=== PATIENT | female | born 2000 | race Caucasian/White ===

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

== ENCOUNTER 2021-06-10 23:02 | Emergency (ER) | payer OTHER ==
--- NOTE | 2021-06-10 23:32 | ED Physician Documentation ---
PD HPI URI - Stated complaint Stated Complaint: FEVER/NAUSEA/CHILLS - Chief complaint Chief Complaint: Fever - History obtained from History obtained from: Patient - History of Present Illness Timing - onset: Today Timing duration: Days (1) Timing details: Abrupt onset, Still present Associated symptoms: Fever, Sore throat, Swollen nodes. No: Ear pain, Nasal congestion, Dry cough, Dyspnea, NVD Contributing factors: Unimmunized. No: Sick contact, Travel, Immunocompromised Worsened by: Other Similar symptoms before: Diagnosis (has had strep tonsillitis few years past.) Recently seen: Not recently seen Review of Systems Constitutional: reports: Fever, Chills, Myalgias Nose: denies: Rhinorrhea / runny nose, Congestion Throat: reports: Sore throat, Swollen tonsils Respiratory: denies: Cough GI: denies: Abdominal Pain, Nausea, Vomiting Skin: denies: Rash PD PAST MEDICAL HISTORY - Past Medical History Cardiovascular: None Respiratory: None Neuro: None Endocrine/Autoimmune: None - Past Surgical History Past Surgical History: No - Present Medications Home Medications: Ambulatory Orders Medication Instructions Recorded Confirmed Ibuprofen [Motrin] 600 mg PO TID PRN #20 tab 06/11/21 Ondansetron Odt [Zofran] 4 mg TL Q6H PRN #10 tablet 06/11/21 cephALEXin [Keflex] 500 mg PO TID 6 Days #18 cap 06/11/21 - Allergies Allergies/Adverse Reactions: Allergies Allergy/AdvReac Type Severity Reaction Status Date / Time No Known Drug Allergies Allergy Verified 06/10/21 23:20 - Social History Does the pt smoke?: No Smoking Status: Never smoker Does the pt drink ETOH?: No Does the pt have substance abuse?: No - Immunizations Immunizations are current?: Yes PD ED PE NORMAL - Vitals Vital signs reviewed: Yes - General General: Alert and oriented X 3, Well developed/nourished - HEENT HEENT: No: Pharynx benign (tonsils swollen bilaterally with exudate and mild lateral peritonsillar edema without bulging. Anterior adenopathy bilaterally. ) - Neck Neck: Supple, no meningeal sign - Cardiac Cardiac: No: RRR (regular but tachycardic) - Respiratory Respiratory: Clear bilaterally - Abdomen Abdomen: Soft, Non tender, No organomegaly - Derm Derm: Normal color, Warm and dry, No rash Results - Vitals Vitals: Vital Signs - 24 hr 06/10/21 06/11/21 23:18 00:16 Temperature 39.1 C H 38.8 C H Heart Rate 115 H 120 H Respiratory 16 17 Rate Blood Pressure 105/59 L 104/59 L O2 Saturation 100 95 Oxygen O2 Source Room air - Labs Labs: Laboratory Tests 06/10/21 23:20 Group A Strep Rapid Negative PD MEDICAL DECISION MAKING - ED course Complexity details: reviewed results, considered differential (tonsils/exam is consistent with likely strep with 4/4 Centor. Rapid strep negative, but culture pending. ), d/w patient Departure - Departure Disposition: Home, Self Care Clinical Impression: Acute tonsillitis Qualifiers: Pharyngitis/tonsillitis etiology: unspecified etiology Qualified Code(s): J03.90 - Acute tonsillitis, unspecified Condition: Stable Record reviewed to determine appropriate education?: Yes Instructions: ED Strep Pharyngitis Poss Follow-Up: MADDY Hernandez [Provider Group] Prescriptions: cephALEXin [Keflex] 500 mg PO TID 6 Days #18 cap Ibuprofen [Motrin] 600 mg PO TID PRN #20 tab PRN Reason: Pain Ondansetron Odt [Zofran] 4 mg TL Q6H PRN #10 tablet PRN Reason: Nausea / Vomiting Comments: Your rapid strep test is negative which is particular for group A strep. Your symptoms and exam look likely to be strep tonsillitis. The culture we are doing will result in a couple of days and will test for other types of strep. We also did a Covid test. I would treat this as possible strep with cephalexin 3 times a day for the next 6 days. Other medications of ibuprofen 3 times a day for inflammation and pain and fever. Add Tylenol if needed. Add ondansetron if needed for nausea. Off work for the next couple of days pending test results and improving symptoms. Is possible that this is a viral type infection. Would get the Covid results in a day or 2 as well to test specifically for that. [facility] Forms: Activity restrictions Discharge Date/Time: 06/11/21 00:16
[2021-06-10 23:37] LABS: RAPID STREP SCREEN Negative (Negative)
[2021-06-10] MEDS ORDERED: ONDANSETRON 4 MG/2 ML VIAL IVP STA (23:40)
[2021-06-10] MEDS ORDERED: IBUPROFEN 600 MG TABLET PO STA (23:40)
[2021-06-10] MEDS ORDERED: ACETAMINOPHEN 325 MG TABLET PO STA (23:40)
[2021-06-10] MEDS ORDERED: cephALEXin 250 MG CAPSULE PO STA (23:41)
[2021-06-10] MEDS ORDERED: diphenhydrAMINE ELIXIR 25 MG/10 ML UDC PO STA (23:41)
[2021-06-10] MEDS ORDERED: ONDANSETRON ODT 4 MG TABLET TL STA (23:43)
[2021-06-11 00:18] VITALS: BP 104/59
== END 2021-06-11 00:16 | disposition home or self-care (01) ==
LOC: ED 23:02
DX: J03.90 Acute tonsillitis, unspecified (principal); Z20.822 Contact with and (suspected) exposure to COVID-19
CPT/HCPCS: 87070; 87077; 87430; 87635; 99283; A9270; Q0162

== ENCOUNTER 2022-01-10 14:52 | Emergency (ER) | payer OTHER ==
[2022-01-10 14:58] VITALS: BP 117/72
[2022-01-10] MEDS ORDERED: PHENAZOPYRIDINE 100 MG TABLET PO STA (15:08)
[2022-01-10 15:12] LABS: BILIRUBIN,URINE NEGATIVE (NEGATIVE); KETONES,URINE (UA) NEGATIVE (NEGATIVE); LEUKOCYTE ESTERASE, URINE SMALL (NEGATIVE); NITRITE,URINE NEGATIVE (NEGATIVE); OCCULT BLOOD,URINE LARGE (NEGATIVE); PH,URINE 8.5 PH (5.0-7.5); PROTEIN,URINE 100 mg/dL (NEGATIVE); UROBILINOGEN,URINE 1 (NORMAL) E.U./dL (NORMAL)
[2022-01-10 15:13] LABS: GLUCOSE, URINE (UA) NEGATIVE (NEGATIVE)
[2022-01-10 15:17] LABS: CLARITY,URINE HAZY (CLEAR); HCG UR QUAL NEGATIVE
[2022-01-10] MEDS ORDERED: NITROFURANTOIN MACRO 100 MG CAPSULE PO STA (15:19)
--- NOTE | 2022-01-10 15:22 | ED Physician Documentation ---
History of Present Illness - Stated complaint Stated Complaint: ABD PX,FEMALE - Chief complaint Chief Complaint: UTI - History obtained from History obtained from: Patient - History of Present Illness Timing: Today Pain level max: 3 Pain level now: 2 - Additonal information Additional information: 21-year-old female presents to the emergency department with dysuria, urinary frequency for the past 24 hours. No history of same. No vaginal discharge. She is currently on her menses. Denies any changes in sexual partners or known STI exposure. Patient is not breast-feeding. Worse with urination, nothing makes it better. Review of Systems Constitutional: denies: Fever, Chills Respiratory: denies: Cough GI: reports: Abdominal Pain (Lower abdominal pain over the bladder. Described as burning). denies: Nausea, Vomiting, Diarrhea : denies: Now EGA Skin: denies: Rash PD PAST MEDICAL HISTORY - Past Medical History Past Medical History: No Cardiovascular: None Respiratory: None Neuro: None Endocrine/Autoimmune: None GI: None [employer]: None : None HEENT: None Psych: None Musculoskeletal: None Derm: None - Past Surgical History Past Surgical History: No - Present Medications Home Medications: Ambulatory Orders Medication Instructions Recorded Confirmed Nitrofurantoin [Macrobid] 100 mg PO BID #10 cap 01/10/22 Phenazopyridine HCl [Pyridium] 200 mg PO TID PRN #6 tablet 01/10/22 - Allergies Allergies/Adverse Reactions: Allergies Allergy/AdvReac Type Severity Reaction Status Date / Time No Known Drug Allergies Allergy Verified 01/10/22 14:54 - Social History Does the pt smoke?: No Smoking Status: Never smoker Does the pt drink ETOH?: Yes Does the pt have substance abuse?: No - Immunizations Immunizations are current?: Yes PD ED PE NORMAL - Vitals Vital signs reviewed: Yes - General General: Alert and oriented X 3, No acute distress - HEENT HEENT: Moist mucous membranes - Neck Neck: Supple, no meningeal sign - Cardiac Cardiac: RRR - Respiratory Respiratory: No respiratory distress, Clear bilaterally - Abdomen Abdomen: Soft, Non tender, Non distended - Back Back: No CVA TTP - Derm Derm: Warm and dry - Neuro Neuro: Alert and oriented X 3 - Psych Psych: Normal mood, Normal affect Results - Vitals Vitals: Vital Signs - 24 hr 01/10/22 14:55 Temperature 36.6 C Heart Rate 82 Respiratory 16 Rate Blood Pressure 117/72 O2 Saturation 100 Oxygen O2 Source Room air - Labs Labs: Laboratory Tests 01/10/22 15:05 Urine Color YELLOW Urine Clarity HAZY Urine pH 8.5 H Ur Specific [place] 1.015 Urine Protein 100 H Urine Glucose (UA) NEGATIVE Urine Ketones NEGATIVE Urine Occult Blood LARGE H Urine Nitrite NEGATIVE Urine Bilirubin NEGATIVE Urine Urobilinogen 1 (NORMAL) Ur Leukocyte Esterase SMALL H Ur Microscopic Review INDICATED Urine Culture Comments Not Reportable Urine HCG, Qual NEGATIVE PD MEDICAL DECISION MAKING - ED course Complexity details: reviewed results, considered differential, d/w patient ED course: Patient with what appears to be UTI. Will place on antibiotics and Pyridium for home. No evidence of pyelonephritis, sepsis. Denies any STI exposure. We will treat his UTI and have her follow-up with her doctor for further care. Patient counseled regarding signs and symptoms for which I believe and urgent re-evaluation would be necessary. Patient with good understanding of and agreement to plan and is comfortable going home at this time This document was made in part using voice recognition software. While efforts are made to proofread this document, sound alike and grammatical errors may occur. Departure - Departure Disposition: Home, Self Care Clinical Impression: Urinary tract infection Qualifiers: Urinary tract infection type: acute cystitis Hematuria presence: without hematuria Qualified Code(s): N30.00 - Acute cystitis without hematuria Condition: Good Instructions: ED UTI Cystitis Female Follow-Up: Provider,Other [Primary Care Provider] - As Needed Prescriptions: Nitrofurantoin [Macrobid] 100 mg PO BID #10 cap Phenazopyridine HCl [Pyridium] 200 mg PO TID PRN #6 tablet PRN Reason: dysuria Comments: Your prescriptions were sent to [facility]. Please take all antibiotics until gone. Follow-up with your doctor as needed for further care. Return if you worsen.
[2022-01-10 15:26] LABS: BACTERIA,URINE Rare /HPF (None Seen); RBC,URINE TNTC /HPF (0-5); SQUAMOUS EPITHELIAL CELL,UR MOD Squamous (<= Few); WBC,URINE >25 /HPF (0-5)
== END 2022-01-10 15:25 | disposition home or self-care (01) ==
LOC: ED 14:52
DX: N30.00 Acute cystitis without hematuria (principal)
CPT/HCPCS: 81001; 81025; 99282; 99283; A9270; 81003; 87086